=== PATIENT | female | born 1975 | race Caucasian/White ===

== ENCOUNTER 2017-08-15 10:32 | Emergency (ER) | payer MEDICAID ==
[2017-08-15] MEDS: HYDROCODONE/APAP (5/325) TAB PO (13:34)
[2017-08-15] MEDS: ONDANSETRON (ODT) 4 MG TAB ODT (13:37)
[2017-08-15] MEDS: LORAZEPAM 1 MG TAB PO (13:46)
[2017-08-15] MEDS: KETOROLAC 60 MG INJ IM (13:46)
== END 2017-08-15 15:14 | disposition home or self-care (01) ==
LOC: FTE 10:32
DX: R51 Headache (principal)
CPT/HCPCS: 70450; 96372; 99285-25